=== PATIENT | female | born 1985 | race Two or more races ===

== ENCOUNTER 2018-08-20 19:40 | Emergency (ER) | payer MEDICAID, OTHER ==
[~2018-08-20] VITALS: Ht 152.4 cm; Wt 52.2 kg
[2018-08-20] MEDS ORDERED: LORA-259 PO (20:06)
[2018-08-20] MEDS ORDERED: FLUO40CA8 PO (20:06)
--- NOTE | 2018-08-20 21:18 | NUR ---
DPatient discharged to home in stable conditon. Written and verbal after care instructions given. Patient verbalizes understanding of instructions.
[2018-08-20 21:20] VITALS: BP 114/77
== END 2018-08-20 21:21 | disposition home or self-care (01) ==
LOC: ER 19:44
DX: F15.93 Other stimulant use, unspecified with withdrawal (principal); F12.10 Cannabis abuse, uncomplicated
CPT/HCPCS: A4663